=== PATIENT | female | born 1970 | race Caucasian/White ===

== ENCOUNTER 2017-08-31 12:28 | Inpatient (IN) | payer OTHER ==
[~2017-08-31] VITALS: Ht 170.2 cm; Wt 81.6 kg
--- NOTE | ~2017-08-31 | S ---
[facility] [place] [address] [place] [address] SURGICAL PATH RPT PROCEDURE Name: MARY CARMONA Room #: 430-P ADM IN M.R.#: [id number] Admission: 08/31/17 Date of : 68 Discharge: Report #: [id number] Path Case #: [id number] PATHOLOGY REPORT COLLECTION DATE: 09/01/2017 RECEIVED DATE: 09/01/2017 SUBMITTING PHYS: Dr. Kwabena Seo, DO OTHER PHYS: Dr. Jonny Zepeda SPECIMEN(S) RECEIVED: A.Skne and soft tissue abdominal wall * * * * * * * * * * * * FINAL DIAGNOSIS: Skin and soft tissue, abdominal wall, debridement: - Marked acute and chronic inflammation as well as fibrinoid necrosis, compatible with the provided history of wound. (IUV:rafael; 09/05/2017) PATHOLOGIST: Cyndee Esquivel M.D. REPORT ELECTRONICALLY SIGNED BY: Cyndee Esquivel M.D. DATE/TIME: 09/05/2017 14:14 * * * * * * * * * * * * GROSS PATHOLOGY: Received in formalin labeled "Mary Carmona, skin and soft tissue abdominal wall" and consists of a segment of lozano skin measuring 5.9 cm in length, 2.4 cm wide, and 1 cm thick. The epidermal surface shows no gross lesions. Sectioning reveals grossly thickened dermis. Also within the container is a fragment of fat, 2.5 x 1.5 x 1.4 cm. Sectioning reveals no gross lesions. Fish Bin Tender sections are submitted as A1. (SANTOS; 09/02/2017) CLINICAL HISTORY: Abdominal wall wound INITIAL CPT CODE(S): 18589 Professional services performed by [facility] at [facility] [address], [place] [address] Technical services performed by [facility] at [address] [place] [address], [facility] [address] [address]. [facility] [address] [place] [address] SURGICAL PATH RPT PROCEDURE Name: MARY CARMONA Criselda Room #: 430-P [facility] IN ..#: [id number] Admission: 08/31/17 Date of : 68 Discharge: Report #: [id number] Path Case #: [id number] [facility] [address] [address] PHONE: [phone] DIRECTOR: Jose Angel Lawson M.D. * * * END OF REPORT * * *
--- NOTE | ~2017-08-31 | HC ---
[facility] [place] [address] [address] [place] [address] CONSULTATION Name: SRUTHI SUAZO Room #: 430-P ADM IN M.R.#: [id number] Admission: 08/31/17 Attend Phys: Jonny Zepeda Discharge: Date of : 68 Report #: [id number] THIS REPORT FOR: //name// CC: Jonny HAYDEN DATE OF SERVICE: 09/01/2017 ATTENDING PHYSICIAN: Jonny Zepeda MD and Dr. Boswell. HISTORY OF PRESENT ILLNESS: This is a 46-year-old white woman with history of abdominal wall cellulitis abscess, recently discharged from [facility] on a combination of Cipro and Minocin after she was deemed to be improved and not surgical candidate. The patient was discharged on 08/19/2017 to be readmitted yesterday with abdominal wall pain, sensation of feverishness, severe pain inducing nausea. The patient did have a repeat CT scan of abdomen and pelvis that failed to reveal gas bubbles in the abdominal wall like previously, but on physical exam she obviously has an abdominal wall abscess and she needs no CT scan to make this diagnosis. Fortunately, the patient is scheduled to have surgical intervention this morning of incision and drainage. PAST MEDICAL HISTORY: Abdominal wall abdominoplasty complicated by multiple surgical interventions thereafter, some 15 in total. The patient was evaluated at [facility], [facility] and [facility] with abdominal wall infections requiring colostomy and subsequently colostomy takedown and removal of abdominal wall mesh. The patient has a history of depression and multiple previous plastic surgical interventions. Cigarette smoking. Chronic pain. DRUG ALLERGIES: MORPHINE, GABAPENTIN, METOCLOPRAMIDE. MEDICATIONS: The patient is on treatment with citalopram, lactobacillus acidophilus, levothyroxine, vancomycin 1250 mg IV every 12 hours, Zosyn 3.375 grams IV every 6 hours, p.r.n. fentanyl, oxycodone p.r.n., docusate p.r.n., zolpidem tartrate p.r.n., daily polyethylene glycol, p.r.n. ondansetron. SOCIAL HISTORY AND FAMILY HISTORY: Unchanged, see previous H and P and consultations. REVIEW OF SYSTEMS: As above and see H and P. PHYSICAL EXAMINATION: GENERAL: Well-developed, overweight woman, not toxic looking, afebrile since admission. VITAL SIGNS: Temperature 97.3, pulse 75, respirations 12, BP 148/93. HEENMT: Head normocephalic, atraumatic. Pupils reactive. Mouth: [place] [address] CONSULTATION Name: SRUTHI SUAZO Room #: 430-P [facility] IN [facility].#: [id number] Admission: 08/31/17 Attend Phys: Jonny Zepeda Discharge: Date of : 68 Report #: [id number] NECK: Supple, no thyromegaly. BREASTS: Deferred. LUNGS: Clear. HEART: S1, S2. No gallop or murmur. ABDOMEN: Surgical scars as well as evidence of previous abdominal wall infection and she does have an obvious abdominal wall abscess on the left lower abdominal quadrant where she previously had the cellulitic changes as well as the induration. No palpable organomegaly or masses. PELVIC AND RECTAL: Deferred. EXTREMITIES: Within range. NEUROLOGIC: Grossly within normal limits. LABORATORY DATA: Sodium 140, potassium 4, BUN 14, creatinine 0.9, albumin 3.2. I ordered a repeat CRP yesterday and it is 23.4 mg/L on 08/16/2017 was 81.4 mg/L. WBC 7100, hemoglobin 11.3 g/dL, platelets 397,000. Sedimentation rate 35 mm per hour, on 08/18/2017 was 22 mm per hour. RADIOLOGY EVALUATION: A CT scan of abdomen and pelvis revealed previous surgical interventions to the abdomen and there is a very unclear reporting of the abdominal wall findings, which is obviously an abdominal wall abscess. ASSESSMENT: 1. Abdominal wall abscess, undetermined organism. 2. Hypoalbuminemia. 3. Improvement of elevation of sedimentation rate. 4. Depression. 5. Chronic pain syndrome. SUGGESTIONS: Recommend continued coverage with vancomycin and Zosyn. Proceed with surgical intervention, incision and drainage of upper abdominal wall abscess. Recommendations regarding home treatment of abdominal wall abscess pending microbiology findings. Discussed plans and clinical findings with Dr. Boswell. Dr. Zepeda, thank you for requesting my suggestions. <ELECTRONICALLY SIGNED> By: Alban Haywood MD 09/01/17 1343 [id number] Alban Haywood MD /nt
--- NOTE | ~2017-08-31 | HC ---
[facility] [place] [place] [address] CONSULTATION Name: SRUTHI SUAZO Room #: 430-P [facility] IN ..#: [id number] Admission: 08/31/17 Attend Phys: Jonny Zepeda Discharge: Date of : 68 Report #: [id number] THIS REPORT FOR: //name// CC: Jonny HAYDEN DATE OF SERVICE: 09/02/2017 CHIEF COMPLAINT: Abdominal wall surgical wound following incision and drainage of abscess. HISTORY OF PRESENT ILLNESS: This is a 46-year-old white female patient who has had multiple hospitalizations for abdominal wall infections and abscess. She was an inpatient recently with IV antibiotics, was discharged home; however, her left lower quadrant abdominal wall continue to have increased drainage and she was readmitted and has undergone excision and debridement of skin and soft tissue and surrounding cellulitis with a postoperative wound measurement of 9 x 4.5 cm. She is complaining of some pain. The patient notes that she has had multiple previous abdominal surgeries, previous experience with wound VACs. She has had previous hernia repair with infected mesh and subsequent revision and mesh removal. 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 Denies any specific trauma to her abdominal wall. She has had previous abdominoplasty by a plastic surgeon apparently developed postoperative infection associated with that those details are not further available for review at this time. PAST MEDICAL HISTORY: Positive for history of abdominal wall abscess, previous abdominal wall hernia repair with subsequent mesh infection, history of MRSA. She denies history of diabetes or any autoimmune disorder. ALLERGIES: GABAPENTIN, REGLAN, MORPHINE. MEDICATIONS: Synthroid, Xanax, Lexapro, Prilosec, Zofran, Elavil. SOCIAL HISTORY: The patient is a heavy smoker, lives at home, raising horses. The patient also admits to some alcohol consumption. She has had previous colon resection with colostomy in 2006 and subsequent takedown later that year. REVIEW OF SYSTEMS: CONSTITUTIONAL: Denies fever, chills, or weight loss. NEUROLOGICAL: The patient denies focal weakness, numbness, tingling. EYES: The patient denies visual changes, redness or drainage. ENT: The patient denies earache, nasal drainage, sore throat. CARDIOVASCULAR: The patient denies chest pain, palpitations, diaphoresis. PULMONARY: The patient denies cough, shortness of breath. [address] [address] CONSULTATION Name: SRUTHI SUAZO Room #: [facility] IN ..#: [id number] Admission: 08/31/17 Attend Phys: Jonny Zepeda Discharge: Date of : 68 Report #: [id number] GASTROINTESTINAL: Does complain of abdominal wall pain. Denies nausea or diarrhea. ORTHOPEDIC: The patient ____. Other systems are negative. PHYSICAL EXAMINATION: VITAL SIGNS: At this time include pulse 70, respiration 20, blood pressure 148/96, temperature 97.9. GENERAL: This is well-built, well-nourished female patient in no distress. HEENT: Head normocephalic. Nose and throat clear. NECK: Supple. LUNGS: Clear. ABDOMEN: Soft. Bowel sounds are present. There is scarring from multiple previous surgeries. She has an approximately 9 cm x 4.5 cm x 1.3 cm wound to the left lower quadrant abdominal wall, it is mostly clean and granulating, a little bit of fibrinous debris is noted. There is some surrounding induration but minimal erythema. LABORATORY DATA: Includes sodium 141, potassium 4.1, chloride 107, CO2 of 28, BUN 11, creatinine 1.0, glucose 94. CRP is 23.4. White blood cell count 6.8 with hemoglobin of 10.8, hematocrit 32.2. CLINICAL IMPRESSION: 1. Surgical wound abdominal wall following incision and drainage of abdominal wall abscess. 2. History of previous abdominoplasty. 3. History of previous ruptured colon with subsequent colostomy takedown. RECOMMENDATIONS: At this point in time, the patient is on intravenous antibiotic therapy, which I think it is appropriate to continue fluids for the near term. We will recommend topical Dakin's moist gauze packing over the next several days and likely transition to a wound VAC beginning of next week. The patient is agreeable with this plan of care. I have discussed with her extensively the need for increased protein to enhance wound healing. She notes that her diet is usually fairly poor eating candy and drinking sugared soft drinks. I do appreciate being asked to see her in consultation. By: 1123 11 Sony Cochran MD /nt
[~2017-08-31 12:28] MED LIST: AMBIEN 10 MG TA10 MG PO; AMITRIPTYLINE H25 M2 PO; BACTRIM DS TAB1 EACH PO; CIPRO250 M2 PO; COLACE100 MG PO; DOXYCYCLINE 10100 MG PO; LEXAPRO20 MG PO; LINEZOLID600 MG PO; LIPITOR10 MG PO; MEDLISTUNAVAIL; NORCO 10-325 T1 EACH PO; ONDANSETRON HCL4 M2 PO; OXYCODONE HCL E40 MG PO; OXYCODONE HCL15 MG PO; OXYCONTIN10 M1 PO; OXYCONTIN30 MG PO; PERCOCET 10-321 EAC1 PO; PHENERGAN 25 MG25 M1 PO; PIPERACIL-TAZO4.5 G1 IV; PRILOSEC20 MG PO; REMERON15 MG PO; TRAMADOL 50 MG50 MG PO; TYLENOL325 MG PO; UNICOMPLEX M TA1 TA1 PO; VITAMINC500 PO; XANAX 0.25 MG0.25 MG PO
[2017-08-31 12:32] VITALS: BP 190/106
[2017-08-31] MEDS ORDERED: OXYCONTIN20 M1 PO (12:36)
[2017-08-31 13:24] LABS: ABSOLUTE NEUTROPHILS 4.7 thou/uL (1.4-8.2); BASOPHILS 0.9 % (0.0-2.0); EOSINOPHILS 1.5 % (0.0-3.0); HEMATOCRIT 33.6 % (37.0-47.0); HEMOGLOBIN 11.4 gm/dL (12.0-15.0); MANUAL DIFF NO; MCH 27.6 pg (26.0-34.0); MCHC 33.9 g/dL (28.0-37.0); MCV 81.4 fL (80.0-100.0); MONOCYTES 4.5 % (1.0-8.0); PLATELET COUNT 397 thou/uL (150-400); POLYS 66.1 % (36.0-66.0); RBC 4.13 mil/uL (4.20-5.00); RDW 15.2 % (10.5-14.5); WBC 7.1 thou/uL (4.0-11.0)
[2017-08-31 13:30] LABS: CALCIUM 9.2 mg/dL (8.5-10.1); CREATININE 0.9 mg/dL (0.6-1.0)
[2017-08-31 13:36] LABS: ALBUMIN 3.2 g/dL (3.4-5.0); TOTAL BILIRUBIN 0.2 mg/dL (<0.1-1.0); TOTAL PROTEIN 7.2 g/dL (6.4-8.2)
[2017-08-31] MEDS ORDERED: SYNTHROID25 MCG PO (14:47)
[2017-08-31 15:27] VITALS: BP 154/92
[2017-08-31 16:16] VITALS: BP 124/78
[2017-08-31 20:00] VITALS: BP 139/81
[2017-09-01 04:00] VITALS: BP 136/80
[2017-09-01 06:26] LABS: EOSINOPHILS 2.5 % (0.0-3.0); HEMATOCRIT 32.2 % (37.0-47.0); HEMOGLOBIN 10.8 gm/dL (12.0-15.0); LYMPHOCYTES 33.5 % (24.0-44.0); MCH 27.4 pg (26.0-34.0); MCHC 33.4 g/dL (28.0-37.0); MCV 81.9 fL (80.0-100.0); MONOCYTES 4.9 % (1.0-8.0); PLATELET COUNT 363 thou/uL (150-400); POLYS 58.1 % (36.0-66.0); RBC 3.93 mil/uL (4.20-5.00); RDW 15.1 % (10.5-14.5); WBC 6.8 thou/uL (4.0-11.0)
[2017-09-01 06:28] LABS: MANUAL DIFF NO
[2017-09-01 06:38] LABS: CALCIUM 8.2 mg/dL (8.5-10.1); MAGNESIUM 1.9 mg/dL (1.8-2.4); POTASSIUM 4.1 mmol/L (3.5-5.1)
[2017-09-01 08:50] VITALS: BP 148/93
[2017-09-01 15:46] VITALS: BP 157/89
[2017-09-01 19:50] VITALS: BP 128/82
[2017-09-02 04:05] VITALS: BP 124/81
[2017-09-02 08:26] VITALS: BP 148/92
[2017-09-02 16:42] VITALS: BP 163/94
[2017-09-02 19:21] VITALS: BP 164/98
[2017-09-02 23:04] VITALS: BP 121/76
[2017-09-03 03:25] VITALS: BP 134/83
[2017-09-03 08:01] VITALS: BP 163/106
[2017-09-03 17:46] VITALS: BP 168/100
[2017-09-03 21:30] VITALS: BP 143/100
[2017-09-04 04:30] VITALS: BP 136/84
[2017-09-04 08:50] VITALS: BP 136/87
[2017-09-04 16:00] VITALS: BP 134/89
[2017-09-04 20:01] VITALS: BP 126/85
[2017-09-05 03:41] VITALS: BP 142/90
[2017-09-05 09:53] VITALS: BP 158/94
[2017-09-05] MEDS ORDERED: DURAGESIC25 MCG/HR TRANSDERM (13:06)
[2017-09-05] MEDS ORDERED: OXYCODONE HCL30 MG PO (13:06)
[2017-09-05 13:56] VITALS: BP 158/94
== END 2017-09-05 15:08 | disposition home or self-care (01) | DRG 571 ==
LOC: ER 12:28 → 4E 14:08 → EROBS 14:08 → 4E 15:35
PROVIDERS: Emergency Medicine; Nurse Practitioner
PROC: 0JB80ZZ Excision of Abdomen Subcutaneous Tissue and Fascia, Open Approach (ICD-10-PCS; principal; 2017-09-01)
DX: L03.311 Cellulitis of abdominal wall (principal); E44.1 Mild protein-calorie malnutrition; L02.211 Cutaneous abscess of abdominal wall; K21.9 Gastro-esophageal reflux disease without esophagitis; G89.29 Other chronic pain; M54.9 Dorsalgia, unspecified; F32.9 Major depressive disorder, single episode, unspecified; F41.9 Anxiety disorder, unspecified; F17.210 Nicotine dependence, cigarettes, uncomplicated; E03.9 Hypothyroidism, unspecified; I10 Essential (primary) hypertension; Z88.5 Allergy status to narcotic agent; Z88.8 Allergy status to other drugs, medicaments and biological substances; Z93.3 Colostomy status; Z86.14 Personal history of Methicillin resistant Staphylococcus aureus infection; Z80.0 Family history of malignant neoplasm of digestive organs; Z68.28 Body mass index [BMI] 28.0-28.9, adult
CPT/HCPCS: 10783; 50010; 50101; 50386; 50417; 53078; 62110; 62900; 70005

== ENCOUNTER → 2017-09-19 | Outpatient (CLI) | payer OTHER ==
[~2017-09-19] MED LIST changes: +DURAGESIC25 MCG/HR TRANSDERM; +OXYCODONE HCL30 MG PO; +OXYCONTIN20 M1 PO; +SYNTHROID25 MCG PO
--- NOTE | ~2017-09-19 | HC ---
[facility] [place] [address] [place] [address] CONSULTATION Name: SRUTHI SUAZO Criselda Room #: [facility]#: [id number] Admission: 09/19/17 Attend Phys: Alban Marmolejo Discharge: Date of : 68 Report #: [id number] THIS REPORT FOR: //name// CC: Alban Napoles MD DATE OF SERVICE: 09/19/2017 HISTORY OF PRESENT ILLNESS: The patient is a 46-year-old white woman readmitted to [facility] on 08/31/2017 with an abdominal wall abscess that is drained by Dr. Kwabena Seo. The culture revealed Enterococcus faecalis sensitive to ampicillin and the patient is discharged on 08/31/2015 on amoxicillin 500 mg p.o. t.i.d., #30. The patient reports she may have some greenish drainage per wound. She no longer has night sweats or fevers. All in all, doing well. Pain has subsided. The patient is scheduled to see doctors in the pain clinic. ALLERGIES: SHE IS ALLERGIC TO GABAPENTIN, METOCLOPRAMIDE AND MORPHINE. MEDICATIONS: She is on treatment with citalopram, omeprazole, alprazolam, amitriptyline and amoxicillin 500 mg t.i.d. She was also given oxycodone SR 20 mg b.i.d. #20. PHYSICAL EXAMINATION: VITAL SIGNS: BP 142/98, pulse 98, temperature 98.6, O2 saturation 95% on room air. GENERAL: Well-developed, not septic looking. LUNGS: Clear. HEART: S1, S2. No gallop or murmur. ABDOMEN: Surgical scars with evidence of previous infection. The left-sided abdominal wound is open, has excellent granulation tissue and has no signs whatsoever of infection and no odor per wound, so no indication for culture. This is progressing nicely and will heal by secondary intention. ASSESSMENT: 1. Abdominal wall abscess due to Enterococcus faecalis. 2. Status post incision and drainage of abdominal wall abscess. 3. Chronic pain syndrome. PLAN: The patient will continue with local wound care and daily dressing [address] [address] CONSULTATION Name: SRUTHI SUAZO Criselda Room #: [facility]#: [id number] Admission: 09/19/17 Attend Phys: Alban Marmolejo Discharge: Date of : 68 Report #: [id number] changes. She will [facility] to [facility]. She will finish supply of amoxicillin 500 p.o. t.i.d. She will see me on as needed basis. <ELECTRONICALLY SIGNED> By: Alban Haywood MD 09/20/17 1010 1328 34 Alban Haywood MD /nt
== END ==
LOC: SEN 09-15 09:15
DX: L02.211 Cutaneous abscess of abdominal wall (principal); G89.29 Other chronic pain

== ENCOUNTER 2017-10-03 13:26 | Inpatient (IN) | payer OTHER ==
[~2017-10-03] VITALS: Ht 170.2 cm; Wt 84.4 kg
--- NOTE | ~2017-10-03 | HC ---
[facility] [address] [place] [address] CONSULTATION Name: SRUTHI SUAZO Room #: 436-P [facility].#: [id number] Admission: 10/03/17 Attend Phys: Pierre Kilpatrick MD Discharge: 10/08/17 Date of : 68 Report #: [id number] THIS REPORT FOR: //name// CC: Pierre HAYDEN DATE OF SERVICE: 10/04/2017 PERSONAL PHYSICIAN: Pierre Kilpatrick MD CHIEF COMPLAINT: Left abdominal wall wound with surrounding erythema. HISTORY OF PRESENT ILLNESS: This is a 46-year-old white female with history of multiple abdominal wall surgeries for multiple abscesses. The patient was last seen in the hospital when she came in with another abdominal wall abscess, which was incised and drained. The patient has been doing wet-to-dry packing daily. We have never had any followup with her postoperatively. The patient states now the wound itself is actually markedly improved; however superior to this previous wound, now is an area of erythema, warmth, exquisite tenderness and fluctuance concerning for underlying abscess. General Surgery has been consulted as well. We were asked to follow the patient for the abdominal wall. Wound is still resolving. PAST MEDICAL HISTORY: Chronic abdominal pain with multiple abdominal wall surgeries secondary to abscesses, history of MRSA, history of chronic pain. CURRENT MEDICATIONS: Multiple, I reviewed the patient's medication list. DRUG ALLERGIES: MORPHINE, GABAPENTIN AND REGLAN. SOCIAL HISTORY: The patient smokes 1 pack of cigarettes daily, drinks alcohol occasionally. FAMILY HISTORY: Not pertinent to current medical condition. REVIEW OF SYSTEMS: CONSTITUTIONAL: The patient states she had fevers over the past few days with associated chills. NEUROLOGIC: The patient complains of overall generalized weakness, but no isolated weakness in arms or legs. EYES: No complaints. ENT: No complaints. CARDIAC: The patient denies chest pain, palpitations, peripheral edema. RESPIRATORY: The patient denies shortness of breath, cough or wheezes. GASTROINTESTINAL: The patient complains of nausea with associated abdominal pain, but no actual vomiting or diarrhea. [facility] [address] [place] [address] CONSULTATION Name: SRUTHI SUAZO Room #: 436-[facility]#: [id number] Admission: 10/03/17 Attend Phys: Pierre Kilpatrick MD Discharge: 10/08/17 Date of : 68 Report #: [id number] MUSCULOSKELETAL: No complaints. GENITOURINARY: The patient is without urgency or frequency. MUSCULOSKELETAL: Without complaints. SKIN: There is a well healing surgical wound on the left lower quadrant abdominal wall with an area of erythema and warmth superior to this. PHYSICAL EXAMINATION: VITAL SIGNS: Temperature 36.9, pulse 74, respirations 18, BP 114/68. GENERAL: This is alert and oriented x 3, pleasant white female who is in no obvious distress. HEENT: Normocephalic, atraumatic. Mucous membranes are moist. Pupils are round. Sclerae are white. NECK: Supple. LUNGS: Clear. HEART: Regular without murmur. ABDOMEN: Soft. There are multiple scars on the right lower quadrant as well as a healing granulating surgical wound on the left lower quadrant, which is at near surface level without signs of tunneling, tracking or undermining. There is no erythema or warmth in this area; however, superior to this, is an area with significant erythema, warmth, swelling and questionable fluctuance. The patient complains of exquisite tenderness over this site. It does extend medially towards the midline, but does not seem to go into the right lower quadrant where previous surgical abscesses were located. EXTREMITIES: The patient moves all extremities without difficulty. Bilateral heels are intact. NEUROLOGIC: Cranial nerves 2-12 are grossly intact. Motor and sensory grossly intact. LABORATORY DATA: White count 6.5, hemoglobin 11.1. Albumin is 3.6. C-reactive protein was 129. WOUND CARE COURSE: I spoke at length with the patient. At this point in time, the wound that she has in her abdominal wall would be easily controlled with silver foam dressing. We will put this on, change it every 2 days. The rest of the abdominal wall erythema, warmth and questionable fluctuance needed to be handled by the surgeons. We will have to encourage the patient to continue maximizing her oral protein supplementation for healing as well as will continue all of her other current medications at this time. IMPRESSION: 1. Nearly resolving left lower quadrant surgical wound status post incision and drainage of an abscess. 2. Fluctuant area in the left upper quadrant concerning for underlying abdominal wall abscess. 3. History of multiple abdominal wall surgeries for abscess formation. 4. History of tobaccoism. [address] [address] CONSULTATION Name: SRUTHI SUAZO Room #: 436-P [facility] IN M.R.#: [id number] Admission: 10/03/17 Attend Phys: Pierre Kilpatrick MD Discharge: 10/08/17 Date of : 68 Report #: [id number] 5. History of chronic pain. PLAN: Described in length as above. We will continue to follow the patient. I appreciate the ability to consult. <ELECTRONICALLY SIGNED> By: Camacho Reilly MD 10/13/17 1132 1734 [id number] Camacho Reilly MD /nt
--- NOTE | ~2017-10-03 | HC ---
[facility] [place] [address] CONSULTATION Name: SRUTHI SUAZO Room #: 436-P [facility] IN M.R.#: [id number] Admission: 10/03/17 Attend Phys: Pierre Kilpatrick MD Discharge: Date of : 68 Report #: [id number] THIS REPORT FOR: //name// CC: Pierre HAYDEN DATE OF SERVICE: 10/04/2017 INFECTIOUS DISEASE CONSULTATION ATTENDING PHYSICIAN: Pierre Kilpatrick MD HISTORY OF PRESENT ILLNESS: This is a 46-year-old white woman with multiple previous hospitalizations at [facility] with recurrent abdominal wall infections, possibly related to previous extensive surgical intervention and reconstruction with mesh. The patient was previously was hospitalized here recently and was diagnosed to have an abdominal wall abscess with enterococcus faecalis, penicillin sensitive and she was discharged home on amoxicillin 500 mg t.i.d. She visited with me at the office and she was doing quite well. She is again readmitted and the abdominal wall wound from previous abscess is almost completely healed, but unfortunately she has developed another lesion proximal to the previous abscess on the left side of the abdomen. I discussed at length with the patient the possibilities as we suspect of self injury versus recurrent of infection secondary to infected mesh. I reviewed CT scan of the abdomen and pelvis with Dr. Clemens who reports there may be leftover mesh on the abdominal wall and the area of new abscess phlegmon formation not quite ready for incision and drainage. I did discuss the patient's situation as well with Dr. Jer Mcpherson the Infectious Disease specialist that have seen this patient in 2013 through 2016 at [facility] and requested he sends me results of previous cultures. I did discuss the patient's situation with Dr. Benja Finn about possibility the infection may be self-induced versus secondary to infected mesh. The patient is a little upset at present time in view that we have brought to her attention the suspicion that she may be self injecting. PAST MEDICAL HISTORY: Abdominoplasty complicated by multiple surgical interventions, some 15 in total, initially evaluated at [facility], subsequently [facility] and of lately at [facility]. Previous colostomy and colostomy takedown as well as removal of abdominal wall mesh. History of bilateral breast implants. Cigarette smoking. Chronic pain syndrome. DRUG ALLERGIES: MORPHINE, GABAPENTIN, METOCLOPRAMIDE. MEDICATIONS: She is currently on treatment on vancomycin 250 mg IV twice daily and Zosyn 3.375 grams IV every 6 hours, also on treatment with pantoprazole, enoxaparin, oxycodone controlled release 40 mg p.o. b.i.d., amitriptyline, [place] [address] CONSULTATION Name: SRUTHI SUAZO Room #: 436-P [facility] IN M.R.#: [id number] Admission: 10/03/17 Attend Phys: Pierre Kilpatrick MD Discharge: Date of : 68 Report #: [id number] hydromorphone IV p.r.n., oxycodone 1-2 tablets q. 6 hours p.r.n., p.r.n. ondansetron, alprazolam. Remains on citalopram, intravenous fluids, p.r.n. ondansetron. SOCIAL HISTORY: See H and P, old records. FAMILY HISTORY: See H and P, old records. REVIEW OF SYSTEMS: Abdominal wall pain, low grade fevers, chronic pain syndrome. PHYSICAL EXAMINATION: GENERAL: Well-developed woman, not toxic looking, afebrile since admission. VITAL SIGNS: Temperature 97.6, pulse 59, respirations 18, BP 92/57. HEENMT: Head normocephalic, atraumatic. Pupils reactive. Mouth: No thrush. NECK: Supple, no thyromegaly. LUNGS: Clear. HEART: S1, S2. BREASTS: With bilateral breast implants. ABDOMEN: Revealed multiple surgical scars and evidence of healing by secondary intention. The surgical wound on the left lower abdominal quadrant is healing perfectly and the wound scar is significantly shrunken. Unfortunately on the proximal aspect of the left side of the abdomen, there is an area of induration, redness and tenderness indicating recurrence of infection. PELVIC: Deferred. RECTAL: Deferred. EXTREMITIES: No clubbing, cyanosis. NEUROLOGIC: Grossly within normal limits. LABORATORY DATA: BMP within range. The CRP has increased to 129.4 mg/L. The urine screen positive for benzodiazepines and opiates. White blood cell count on admission 10,000; hemoglobin 12.6, repeat CBC today revealed a WBC of 6500, hemoglobin 11.1. The sedimentation rate not obtained at this particular time. Blood cultures were obtained, they remain negative so far. CT scan of abdomen and pelvis reviewed with Dr. Clemens revealed inflammatory changes of the abdominal wall with some air bubbles. Possible presence of foreign body -- mesh. ASSESSMENT: 1. Recurrent abdominal wall infections since 2013. 2. Recent enterococcus faecalis abdominal wall abscess. 3. History of abdominal wall reconstruction with mesh, status post takedown. 4. Status post colostomy takedown. SUGGESTIONS AND RECOMMENDATIONS: I have discussed at length the patient's situation with Dr. Jer Mcpherson the Infectious Disease specialist at [facility] and has reviewed CT scan of abdomen and pelvis with Dr. Clemens. [facility] [place] [address] CONSULTATION Name: SRUTHI SUAZO Room #: 436-P ADM IN M.R.#: [id number] Admission: 10/03/17 Attend Phys: Pierre Kilpatrick MD Discharge: Date of : 68 Report #: [id number] For time being, we will continue coverage with vancomycin and Zosyn. The options for these patients are rather limited. If we have an organism sensitive to oral antibiotics, chronic supression may be a way to try to prevent recurrent abdominal wall abscesses. Obviously, the way to prevent these recurrent is by removing all foreign bodies off of the abdominal wall, which might not be feasible from the surgical standpoint in view of the multiple previous surgical interventions that the patient have gone through. Dr. Kilpatrick, thank you for requesting my suggestions in the care of your patient. <ELECTRONICALLY SIGNED> By: Alban Haywood MD 10/05/17 0958 1523 [id number] Alban Haywood MD /nt
--- NOTE | ~2017-10-03 | S ---
[facility] [place] [address] [place] [address] SURGICAL PATH RPT PROCEDURE Name: MARY CARMONA Room #: 436-P ADM IN M.R.#: [id number] Admission: 10/03/17 Date of : 68 Discharge: Report #: [id number] Path Case #: [id number] PATHOLOGY REPORT COLLECTION DATE: 10/06/2017 RECEIVED DATE: 10/06/2017 SUBMITTING PHYS: Dr. Anil Ashley OTHER PHYS: Dr. Pierre Kilpatrick SPECIMEN(S) RECEIVED: A.Skin and necrotic fat * * * * * * * * * * * * FINAL DIAGNOSIS: Skin with underlying soft tissue "skin and necrotic fat": - Fat necrosis with acute inflammatory exudate consistent with an abscess. - There is no evidence of atypia or malignancy. ([facility]; 10/07/2017) PATHOLOGIST: Gerald Rooney M.D. REPORT ELECTRONICALLY SIGNED BY: Gerald Rooney M.D. DATE/TIME: 10/07/2017 14:14 * * * * * * * * * * * * GROSS PATHOLOGY: The specimen is received in formalin, labeled "Mary Carmona and skin and necrotic fat", are two portions of soft tissues, the skin 1.0 x 0.3 x 0.3 cm and the yellow lobulated/hemorrhagic adipose tissue 1.3 x 0.9 x 0.5 cm (bisected). Specimen entirely submitted in A1. ([facility]; 10/06/2017) CLINICAL HISTORY: Recurrent abdominal wall abscess INITIAL CPT CODE(S): 39231 Professional services performed by [facility] at [facility] [address], [place] [address] Technical services performed by [facility] at [address] [place] [address]. [facility] [address] [place] [address] SURGICAL PATH RPT PROCEDURE Name: MARY CARMONA Room #: 436-P [facility] IN ..#: [id number] Admission: 10/03/17 Date of : 68 Discharge: Report #: [id number] Path Case #: [id number] [facility] [address] [place] [address] PHONE: [phone] DIRECTOR: Jose Angel Lawson M.D. * * * END OF REPORT * * *
--- NOTE | ~2017-10-03 | O ---
[facility] [place] [address] OPERATIVE REPORT Name: SRUTHI SUAZO Room #: 436-P [facility] IN .R.#: [id number] Admission: 10/03/17 Attend Phys: Pierre Kilpatrick MD Discharge: Date of : 68 Report #: [id number] THIS REPORT FOR: //name// CC: Pierre HAYDEN DATE OF SERVICE: 10/06/2017 PREOPERATIVE DIAGNOSIS: Recurrent abscess of the anterior abdominal wall, left of midline in the upper abdomen. POSTOPERATIVE DIAGNOSIS: Recurrent abscess of the anterior abdominal wall, left of midline in the upper abdomen. OPERATIVE PROCEDURE: Incision and drainage of left anterior abdominal wall recurrent abscess with biopsy of the abscess wall. Silver nitrate application of a lower abdominal wall healing wound, previously drained in 08/2017. SURGEON: Anil Ashley MD. PAROLE SUPERVISOR: Familia Breen MS3. INDICATIONS: A 46-year-old lady who has had multiple abdominal wall reconstructions for ventral hernias with recurrent abscesses, has presented with another 3-4 cm recurrent abscess with overlying erythema of the skin in the upper abdomen, left of midline. This requires incision and drainage. OPERATIVE PROCEDURE: The patient had thorough discussion of the procedure, benefits and risks. She gave informed consent to proceed. She was brought to the operating room suite and had satisfactory induction of general endotracheal anesthesia. The patient's entire abdomen was painted only with Betadine solution. After appropriate draping was completed, a 10 mL syringe with a 22 needle was placed directly into the mid portion of the abscess cavity with aspiration of a small amount of purulent material. The abscess was then opened in a transverse manner with a 4 cm incision directly into the abscess cavity. Cultures for aerobes, anaerobes, acid fast bacilli and fungus were obtained x 2. The wall of the abscess cavity with a little bit of superficial skin was also excised for biopsy. This was sent for histologic evaluation. Irrigation with saline was performed. The wound was then packed with half inch iodoform gauze soaked in bacitracin solution. The previously drained abscess cavity one month ago inferior to this had a small amount of exuberant granulation tissue, which was then cauterized with silver nitrate. Dressings were applied. The [address] [address] OPERATIVE REPORT Name: SRUTHI SUAZO Criselda Room #: 436-P [facility] IN ..#: [id number] Admission: 10/03/17 Attend Phys: Pierre Kilpatrick MD Discharge: Date of : 68 Report #: [id number] blood loss was less than 5 mL. The patient tolerated the procedure well, and she returned directly to recovery room in stable and satisfactory condition. <ELECTRONICALLY SIGNED> By: Anil Ashley MD, FACS 10/07/17 1351 1041 1105 Anil Ashley MD, FACS /nt
--- NOTE | ~2017-10-03 | HC ---
[facility] [place] [address] CONSULTATION Name: SRUTHI SUAZO Room #: 436-P [facility] IN ..#: [id number] Admission: 10/03/17 Attend Phys: Pierre Kilpatrick MD Discharge: Date of : 68 Report #: [id number] THIS REPORT FOR: //name// CC: Pierre HAYDEN DATE OF SERVICE: 10/03/2017 GENERAL SURGERY CONSULTATION REFERRING PROVIDER: Pierre Kilpatrick M.D. REASON FOR CONSULT: Abdominal wall cellulitis. HISTORY OF PRESENT ILLNESS: The patient is a 46-year-old female who is known to me as she is 1.5 years status post complex abdominal wall reconstruction with explantation of infected synthetic mesh. The patient had multiple prior episodes of abdominal wall cellulitis and abscess formation, having undergone greater than 15 abdominal wall operations coupled between [facility] and [facility] prior to my intervention. The patient's abscesses were complicated by MRSA and Pseudomonas. Unfortunately, over the past month and a half, the patient has presented with numerous bouts of recurrent cellulitis and ultimately abscess formation that has required incision and drainage. The patient's most recent abdominal wall reconstruction procedure utilized no synthetic material whatsoever, as all biologic and bioresorbable material was used throughout her abdominal domain. The patient's workup this admission in the form of labs and a CT scan of the abdomen and pelvis were obtained. Her labs were again normal and her CT scan shows an area of soft tissue thickening, consistent with cellulitis. At her most recent exploration for abscess formation, she was noted to have numerous sinus tracts draining directly into cavities in the subcutaneous space, raising the concern for self-injection causing the abscesses. Culture results from that time have shown Enterococcus. Nonetheless, she is admitted with recurrent cellulitis and we are asked to evaluate once again. PAST MEDICAL HISTORY: Numerous abdominal operations, as above. She has a history of colostomy with colostomy reversal and panniculectomy. She does have chronic pain syndrome with narcotic dependence, depression with anxiety and history of tobaccoism. MEDICATIONS: Citalopram, alprazolam, amitriptyline, oxycodone IR as well as sustained release, Zofran, Colace, Tylenol and is currently on antibiotics. DRUG ALLERGIES: MORPHINE, GABAPENTIN AND REGLAN. SOCIAL HISTORY: [place] No tobacco, alcohol or illicit drug use. [address] [address] CONSULTATION Name: SRUTHI SUAZO Room #: 436-P [facility]#: [id number] Admission: 10/03/17 Attend Phys: Pierre Kilpatrick MD Discharge: Date of : 68 Report #: [id number] FAMILY HISTORY: Reviewed and noncontributory. REVIEW OF SYSTEMS: GENERAL: The patient denies nocturnal fevers or chills. HEENT: No change in vision. No change in hearing. NECK: No swelling or difficulty swallowing. HEART: No chest pain or palpitations. LUNGS: No cough or shortness of breath. ABDOMEN: No nausea, no vomiting. GENITOURINARY: No dysuria or hematuria. ENDOCRINE: No polyuria or polydipsia. HEMATOLOGIC: No history of bleeding or easy bruising. EXTREMITIES: No history of weakness or limited range of motion. NEUROLOGIC: No history of syncope or near syncopal episodes. SKIN AND INTEGUMENT: No prior history of abnormal lesions or moles. PHYSICAL EXAMINATION: VITAL SIGNS: Temperature 97.8, pulse 85, respirations 16 and blood pressure 108/63. GENERAL: Alert, in no acute distress. HEENT: Normocephalic, atraumatic. Pupils equal, round and reactive to light. NECK: Supple, without lymphadenopathy. Trachea midline. HEART: Regular rate and rhythm. LUNGS: Clear to auscultation bilaterally. ABDOMEN: Soft, nontender and nondistended. GENITOURINARY: Normal external female genitalia. EXTREMITIES: No clubbing, cyanosis or edema. NEUROLOGIC: Cranial nerves 2-12 are grossly intact. SKIN AND INTEGUMENT: Left upper quadrant shows an area of erythema and induration, but no fluctuance or crepitus. LABORATORY AND X-RAY DATA: CBC shows white blood cell count of 10.0 thousand, hemoglobin 12.6 and platelets 272,000. Creatinine 1.0. Albumin 3.6. CRP is elevated at 129.4. Lactic acid normal at 1.1. CT scan of the abdomen and pelvis, as per HPI, shows an area of soft tissue thickening, concerning for cellulitis. ASSESSMENT AND PLAN: A 46-year-old female with recurrent erythema and induration, consistent with cellulitis. The patient denies any injections. However, at her most recent exploration, there were draining sinus tracts concerning for self injection. Nonetheless, at this time, she is not toxic appearing and there was no drainable abscess or fluctuance at this time. The patient will continue IV antibiotic therapy under the direction of Infectious Disease and we will continue to evaluate, ultimately likely undergoing incision and drainage for culture identification. [address] [address] CONSULTATION Name: SRUTHI SUAZO Room #: 436-P ADM IN M.R.#: [id number] Admission: 10/03/17 Attend Phys: Pierre Kilptarick MD Discharge: Date of : 68 Report #: [id number] I sincerely appreciate this consult. We will follow and leave any further recommendations in the patient's chart as appropriate. <ELECTRONICALLY SIGNED> By: Rodri Williamson MD, FACS 10/06/1756 3 1 Rodri Williamson MD, FACS /nt
--- NOTE | ~2017-10-03 | EKG ---
[address] [address] ELECTROCARDIOGRAM REPORT Name: MENDEZ SUAZOTERESITA Aburto Room #: 436-P [facility] IN M.R.#: [id number] Admission: 10/03/17 Attend Phys: Pierre Kilpatrick MD Discharge: Date of : 68 Report #: [id number] THIS REPORT FOR: //name// [facility] ED Test Date: 2017-10-03 Test Time: 15:47:53 Pat Name: SRUTHI SUAZO Department: Room: [facility] Gender: F Slate Splitter: SHANE : 1970 Requested By: Inocente Pierce Order Number: [id number] MD: [place] Measurements Intervals [place] Rate: 82 P: 43 CT: 186 QRS: 19 QRSD: 102 T: 28 QT: 395 QTc: 462 Interpretive Statements Sinus rhythm No significant abnormality No previous ECG available for comparison Electronically Signed On 10-04-2017 8:41:47 UPTWISTER TENDER by [place] [email or web address] <ELECTRONICALLY SIGNED> By: [place] MD, [facility] 10/04/17 0841 1547 1547 [place] MD, FACC /EPI
[2017-10-03 13:49] VITALS: BP 117/82
[2017-10-03 14:37] LABS: URINE BLOOD TRACE (Negative); URINE COLOR YELLOW; URINE GLUCOSE-RANDOM* NEGATIVE (Negative); URINE KETONES TRACE (Negative); URINE LEUKOCYTES-REFLEX NEGATIVE (Negative); URINE PROTEIN (DIPSTICK) NEGATIVE (Negative)
[2017-10-03 14:38] LABS: ICTOTEST (BILI CONFIRMATORY) Negative (Negative); URINE BILIRUBIN NEGATIVE (Negative)
[2017-10-03] MEDS ORDERED: OXYCODONE HCL E40 MG PO (15:48)
[2017-10-03] MEDS ORDERED: MOBIC15 MG PO (15:48)
[2017-10-03] MEDS ORDERED: OXYCODONE HCL30 MG PO (15:50)
[2017-10-03 15:59] LABS: ABSOLUTE NEUTROPHILS 6.5 thou/uL (1.4-8.2); BASOPHILS 0.5 % (0.0-2.0); EOSINOPHILS 1.2 % (0.0-3.0); HEMATOCRIT 37.3 % (37.0-47.0); HEMOGLOBIN 12.6 gm/dL (12.0-15.0); LYMPHOCYTES 28.3 % (24.0-44.0); MCHC 33.8 g/dL (28.0-37.0); MCV 82.8 fL (80.0-100.0); MONOCYTES 4.6 % (1.0-8.0); PLATELET COUNT 272 thou/uL (150-400); POLYS 65.4 % (36.0-66.0); RBC 4.51 mil/uL (4.20-5.00); RDW 15.4 % (10.5-14.5)
[2017-10-03 16:00] LABS: MANUAL DIFF NO
[2017-10-03 16:07] LABS: ANION GAP 8 mmol/L (7-16); BUN 13 mg/dL (7-18); CALCIUM 9.2 mg/dL (8.5-10.1); CHLORIDE 104 mmol/L (98-107); CO2 27 mmol/L (21-32); GLUCOSE 103 mg/dL (74-106); POTASSIUM 4.3 mmol/L (3.5-5.1); SODIUM 139 mmol/L (136-145)
[2017-10-03 16:16] LABS: ALBUMIN 3.6 g/dL (3.4-5.0); ALKALINE PHOSPHATASE 110 U/L (46-116); SGOT 28 U/L (15-37); SGPT 30 U/L (30-65); TOTAL BILIRUBIN 0.4 mg/dL (<0.1-1.0); TOTAL PROTEIN 7.7 g/dL (6.4-8.2); TROPONIN-I < 0.04 ng/mL (<0.06)
[2017-10-03 16:55] VITALS: BP 108/63
[2017-10-03 19:24] VITALS: BP 112/86
[2017-10-03 20:04] VITALS: BP 87/42
[2017-10-04 01:09] VITALS: BP 97/57
[2017-10-04 06:03] VITALS: BP 91/49
[2017-10-04 06:21] LABS: HEMATOCRIT 31.9 % (37.0-47.0); HEMOGLOBIN 11.1 gm/dL (12.0-15.0); MCH 28.9 pg (26.0-34.0); MCHC 34.7 g/dL (28.0-37.0); MCV 83.2 fL (80.0-100.0); RBC 3.83 mil/uL (4.20-5.00); RDW 15.7 % (10.5-14.5); WBC 6.5 thou/uL (4.0-11.0)
[2017-10-04 06:35] LABS: CALCIUM 8.3 mg/dL (8.5-10.1); POTASSIUM 4.1 mmol/L (3.5-5.1)
[2017-10-04 08:00] VITALS: BP 92/57
[2017-10-04 14:14] LABS: AMP/METHAMP Negative (Negative); BARBITURATES Negative (Negative); BENZODIAZEPINES POSITIVE (Negative); COCAINE Negative (Negative); METHADONE Negative (Negative); OPIATES POSITIVE (Negative); PCP Negative (Negative)
[2017-10-04 16:00] VITALS: BP 114/68
[2017-10-04 19:29] VITALS: BP 117/80
[2017-10-05 03:27] VITALS: BP 109/64
[2017-10-05 05:33] LABS: HEMATOCRIT 30.4 % (37.0-47.0); HEMOGLOBIN 10.3 gm/dL (12.0-15.0); MCH 28.3 pg (26.0-34.0); MCV 83.4 fL (80.0-100.0); RBC 3.64 mil/uL (4.20-5.00); RDW 15.2 % (10.5-14.5); WBC 5.5 thou/uL (4.0-11.0)
[2017-10-05 05:40] LABS: CALCIUM 8.1 mg/dL (8.5-10.1); POTASSIUM 4.3 mmol/L (3.5-5.1)
[2017-10-05 07:50] VITALS: BP 133/78
[2017-10-05 16:11] VITALS: BP 128/84
[2017-10-05 19:43] VITALS: BP 139/88
[2017-10-05 20:54] VITALS: BP 135/86
[2017-10-06 04:34] VITALS: BP 138/80
[2017-10-06 06:20] LABS: HEMATOCRIT 29.5 % (37.0-47.0); HEMOGLOBIN 10.1 gm/dL (12.0-15.0); MCH 28.2 pg (26.0-34.0); MCHC 34.1 g/dL (28.0-37.0); MCV 82.5 fL (80.0-100.0); RBC 3.58 mil/uL (4.20-5.00); RDW 15.3 % (10.5-14.5); WBC 5.5 thou/uL (4.0-11.0)
[2017-10-06 06:30] LABS: CALCIUM 8.3 mg/dL (8.5-10.1); POTASSIUM 3.8 mmol/L (3.5-5.1)
[2017-10-06 08:28] VITALS: BP 133/77
[2017-10-06 13:12] VITALS: BP 142/92
[2017-10-06 16:06] VITALS: BP 142/83
[2017-10-06 20:27] VITALS: BP 152/97
[2017-10-07 05:18] VITALS: BP 158/90
[2017-10-07 07:15] VITALS: BP 164/89
[2017-10-07 16:22] VITALS: BP 144/87
[2017-10-07 19:38] VITALS: BP 146/94
[2017-10-08 04:30] VITALS: BP 134/71
[2017-10-08 07:13] VITALS: BP 135/85
[2017-10-08] MEDS ORDERED: OXYCODONE HCL E40 MG PO (09:53)
[2017-10-08] MEDS ORDERED: OXYCODONE HCL30 MG PO (09:54)
[2017-10-08 15:20] VITALS: BP 154/99
[2017-10-08] MEDS ORDERED: AUGMENTIN 500-1 EACH PO (17:37)
[2017-10-08 17:38] VITALS: BP 154/99
== END 2017-10-08 18:05 | disposition home health service (06) | DRG 603 ==
LOC: ER 13:26 → EROBS 16:48 → 4S 16:48
PROVIDERS: Emergency Medicine; Hospitalist; Internal Medicine
PROC: 0JB80ZX Excision of Abdomen Subcutaneous Tissue and Fascia, Open Approach, Diagnostic (ICD-10-PCS; principal; 2017-10-06)
DX: L03.311 Cellulitis of abdominal wall (principal); K21.9 Gastro-esophageal reflux disease without esophagitis; G89.29 Other chronic pain; M54.9 Dorsalgia, unspecified; I10 Essential (primary) hypertension; F41.1 Generalized anxiety disorder; F17.210 Nicotine dependence, cigarettes, uncomplicated; F32.9 Major depressive disorder, single episode, unspecified; L02.211 Cutaneous abscess of abdominal wall; Z80.0 Family history of malignant neoplasm of digestive organs; Z79.899 Other long term (current) drug therapy; Z88.5 Allergy status to narcotic agent; Z88.8 Allergy status to other drugs, medicaments and biological substances; Z93.3 Colostomy status; Z86.14 Personal history of Methicillin resistant Staphylococcus aureus infection
CPT/HCPCS: 10102; 50010; 50101; 50386; 50403; 62110; 62900; 70005

== ENCOUNTER 2017-11-08 12:19 | Emergency (ER) | payer OTHER ==
[~2017-11-08] VITALS: Ht 170.2 cm; Wt 81.7 kg
[~2017-11-08 12:19] MED LIST changes: +AUGMENTIN 500-1 EACH PO; +MOBIC15 MG PO; +PRILOSEC OTC20 MG PO; -PRILOSEC20 MG PO
[2017-11-08 13:48] LABS: ABSOLUTE NEUTROPHILS 6.7 thou/uL (1.4-8.2); BASOPHILS 0.7 % (0.0-2.0); EOSINOPHILS 0.2 % (0.0-3.0); HEMATOCRIT 40.1 % (37.0-47.0); HEMOGLOBIN 13.7 gm/dL (12.0-15.0); LYMPHOCYTES 18.2 % (24.0-44.0); MCH 27.7 pg (26.0-34.0); MCHC 34.1 g/dL (28.0-37.0); MCV 81.2 fL (80.0-100.0); MONOCYTES 4.1 % (1.0-8.0); PLATELET COUNT 364 thou/uL (150-400); POLYS 76.8 % (36.0-66.0); RBC 4.93 mil/uL (4.20-5.00); RDW 15.3 % (10.5-14.5); WBC 8.8 thou/uL (4.0-11.0)
[2017-11-08 13:59] LABS: CALCIUM 9.9 mg/dL (8.5-10.1); CREATININE 1.1 mg/dL (0.6-1.0); POTASSIUM 3.1 mmol/L (3.5-5.1)
[2017-11-08] MEDS ORDERED: AUGMENTIN 875-1 EACH PO (14:54)
[2017-11-08] MEDS ORDERED: ZOFRAN ODT4 MG PO (15:13)
[2017-11-08] MEDS ORDERED: BENTYL 20 MG TA20 M1 PO (15:13)
[2017-11-08 15:45] VITALS: BP 136/94
== END 2017-11-08 15:47 | disposition home or self-care (01) ==
LOC: ER 12:19
PROVIDERS: Emergency Medicine
DX: L02.211 Cutaneous abscess of abdominal wall (principal); K21.9 Gastro-esophageal reflux disease without esophagitis; G89.4 Chronic pain syndrome; G89.29 Other chronic pain; M54.9 Dorsalgia, unspecified; F41.9 Anxiety disorder, unspecified; F32.9 Major depressive disorder, single episode, unspecified; I10 Essential (primary) hypertension; F17.210 Nicotine dependence, cigarettes, uncomplicated; Z86.14 Personal history of Methicillin resistant Staphylococcus aureus infection; Z88.6 Allergy status to analgesic agent; Z88.8 Allergy status to other drugs, medicaments and biological substances